=== PATIENT | female | born 1965 | race Caucasian/White ===

== ENCOUNTER 2023-09-11 09:06 | Emergency (ER) | payer OTHER, SELFPAY ==
[2023-09-11 09:13] VITALS: BP 177/95
[2023-09-11 09:29] LABS: % Basophils 1.4 % (0-2); % Eosinophils 4.1 % (0-6); % Immature Granulocytes 0.2 % (0-0.5); % Monocytes 5.8 % (1.7-9.3); % Neutrophils 56.5 % (42.2-75.2); Absolute Basophils 0.1 10^3/uL (0-0.2); Absolute Eosinophils 0.2 10^3/uL (0-0.7); Absolute Lymphocytes 1.8 10^3/uL (1.2-3.4); Absolute Monocytes 0.3 10^3/uL (0.1-0.6); Absolute Neutrophils 3.1 10^3/uL (1.4-6.5); Hematocrit 44.1 % (37.0-47.0); Hemoglobin 14.6 g/dL (12.0-16.0); Mean Corp Hgb Conc. 33.1 g/dL (33.0-37.0); Mean Corpuscular Hgb 29.4 pg (27.0-31.0); Mean Corpuscular Volume 88.7 fL (81.0-99.0); Mean Platelet Volume 10.3 fL (7.4-10.4); Nucleated Red Blood Cells % 0 %; Platelet Count 250 10^3/uL (130-400); Red Blood Cell Count 4.97 10^6/uL (4.20-5.40); Red Cell Dist. Width 12.8 % (11.5-14.5); White Blood Cell Count 5.6 10^3/uL (4.8-10.8)
[2023-09-11 09:48] LABS: ALT (SGPT) 33 U/L (0-35); AST (SGOT) 28 U/L (14-36); Albumin 4.2 g/dl (3.5-5.0); Alkaline Phosphatase 88 U/L (38-126); Blood Urea Nitrogen 20 mg/dl (7-17); Calcium 9.5 mg/dl (8.4-10.2); Carbon Dioxide 27 mmol/L (22-30); Chloride 106 mmol/L (98-107); Glucose 98 mg/dl (70-99); Potassium 4.2 mmol/L (3.5-5.1); Sodium 136 mmol/L (135-145); Total Bilirubin 0.7 mg/dl (0.2-1.3); Total Protein 6.9 g/dl (6.3-8.2); eGFR > 60.00
[2023-09-11 09:53] LABS: Troponin I < 0.012 ng/ml
[2023-09-11 11:03] VITALS: BMI 26.8
[2023-09-11 11:05] VITALS: BP 126/81
--- NOTE | 2023-09-11 11:08 | ED.GENMED ---
History of Present Illness
General
Chief Complaint: Chest Pain
Source: patient and spouse
Exam Limitations: none
Time Seen by Provider: 09/11/23 10:54
Nursing documentation reviewed up to this point in time: agreed with
Travel History
Have you had any contact with someone who has COVID-19?: No
Do you have any symptoms of coronavirus? Fever > 100 degrees, chills, cough, shortness of breath, sore throat, loss of taste or smell, muscle aches, or headache?: No
History of Present Illness
History of Present Illness:
The patient is a 58-year-old female with a past medical history of hyperlipidemia who comes in with midsternal chest tightness. Patient reports that she has had intermittent symptoms for 1 week. Patient reports that she felt the chest tightness
briefly while driving one in the car this week and also experienced the chest tightness initially after eating in a restaurant about a week ago. Patient reports that she woke up this morning with achiness around her left neck, left shoulder and
left back area. She reports that she developed the chest heaviness while walking her dog this morning, shortly before 9 AM. Patient reports that she feels much better and is nearly gone but she still feels it slightly. Patient reports that the
discomfort was associated with sweating earlier today. Patient denies shortness of breath. She denies any sharp chest pain. She denies leg pain and leg swelling. She denies a history of PE and DVT.
Past History
Past History
ED Past Medical History: HTN
ED Past Surgical History: Other
Social History
Tobacco: Non-smoker
Alcohol: None
Drug: None
Personal:
Living: with family
Employment: Other
Family History
Family History: CAD
Review of Systems
Review of Systems
Allergies reviewed?: Yes
All Other Systems: ROS reviewed and negative except as documented in HPI and ROS
Constitutional: Reports no symptoms
EENT: Reports no symptoms
Respiratory: Reports no symptoms
Cardiac: Reports chest pain
ABD/GI: Reports no symptoms
: Reports no symptoms
Musculoskeletal: Reports joint pain and back pain
Skin: Reports no symptoms
Neurological: Reports no symptoms
Endocrine: Reports no symptoms
Hematologic/Lymphatic: Reports no symptoms
Psychiatric: Reports no symptoms
Phy Exam
Physical Exam
Physical Exam:
Physical Exam
General: no apparent distress, not acutely ill. Well and comfortable appearing
Neck: supple. no meningeal signs. normal psoterior pharynx
Heart: s1/s2 regular rate and rhythm, no murmur. equal radial pulses.
Lungs: no acute respiratory distress. clear bilaterally. No pulsatile mass
Abdomen: normal bowel sounds. not tender. no CVAT
Neuro: alert and oriented. no focal neurological deficits
Skin: no rash
Psychiatric: well kept. interactive and cooperative
Extremities: no edema. no calf tenderness. negative homans. good distal pulses
Scores
Heart Score for Chest Pain Patients
STEMI patient?: No
History: Slightly or Non-Suspicious
ECG: Normal
Age: >45 - <65 years
Risk Factors: 1 or 2 Risk Factors
Troponin: </= Normal Limit
Heart Score for Chest Pain Patients: 2
Heart Score Risk: 2.5% MACE over next 6 weeks
Course
Orders/Labs/Results
Orders:
Orders
09/11/23 09:09
Electrocardiogram (*1) Urgent
Reason for Study: Chest Pain
EKG- Treatment ONCE
09/11/23 09:21
Complete Blood Count/With Diff Urgent
Comprehensive Metabolic Panel Urgent
Troponin I Urgent
09/11/23 11:38
CR Chest - 2 Views Urgent
Comment:
Reason For Exam: CP
09/11/23 12:26
Troponin I Urgent
Abnormal Lab Results
09/11/23
09:21
BUN 20 H mg/dl
(7-17)
09/11/23 09:21
09/11/23 09:21
Vital Signs
Initial and Last Documented VS:
Initial Vital Signs
Temp Pulse Resp BP Pulse Ox
98 F 66 16 177/95 98
09/11/23 09:13 09/11/23 09:13 09/11/23 09:13 09/11/23 09:13 09/11/23 09:13
Last Documented Vital Signs
Temp Pulse Resp BP Pulse Ox
98 F 71 17 135/98 96
09/11/23 09:13 09/11/23 12:30 09/11/23 12:30 09/11/23 13:20 09/11/23 13:20
MDM/Problems Addressed
Differential Diagnosis Includes:
Acute coronary syndrome, aortic dissection, PE, gastritis
MDM/Problems Addressed:
Patient presents with acute chest pain
Chronic conditions affecting care: HTN
Acute Exacerbation and/or Progression of Chronic Illness:
Patient was acutely hypertensive when getting here, but now blood pressure has come down significantly
Acute Exacerbation and/or Progression of Chronic Illness: HTN
*Radiology
Radiology exam reviewed: preliminary read by ED provider (No acute disease. Chest x-ray read by me)
*Pulse Oximetry
Patient hypoxic: no
*EKG
Interpreted by ED Provider?: Yes
Interpretation: normal
Comparison EKG: no changes
Rate: normal
Rhythm: sinus
Williams: normal axis
Interval: normal interval
QRS Pattern: normal QRS
Ischemia: no ischemia
*Milk Pickup Driver Interpretation
Rate: normal
Interpretation: normal
Rhythm: sinus
*Critical Care Note
Total Time (30-74mins, 75-104mins- exclusive of procedures): Not Applicable
Data Reviewed
Source: patient and spouse
Patient Management
Social determinants of health affecting care: Living situation and Strong social support
Escalation/DeEscalation of care consider admission/obs:
Patient remains extremely well and comfortable appearing with minimal discomfort. EKG appears nonischemic. Troponins are negative. It is doubtful she is acute coronary syndrome. In addition, she denies any shortness of breath or chest pain with
breathing. Will she is a PE.
ED Attending Note
-
Portions of this chart may have been created with voice recognition software.� Occasional wrong word or��sound alike� substitutions may have occurred due to the inherent limitations of voice recognition software.
Discharge Plan
Departure
Patient Disposition: Home (Routine Discharge)
Date of Disposition: 09/11/23
Time of Disposition: 13:09
Patient with high blood pressure during this ER visit?: Yes
Condition: Good
Covid-19: Not Applicable
Discharge Problem:
Chest pain in adult
Instructions: Chest Pain CBC Follow Up
Referrals:
Akin Yun MD [Active] - (Call in 3 days if you do not hear from the cardiology office sooner than that)
Ralph Ly MD [Family Provider] -
Interventions
Interventions:
*Risk Screen - Suicide Last Done: 09/11/23 09:13
*General Assessment Last Done: 09/11/23 09:13
*Neglect/Abuse Screening Last Done: 09/11/23 09:13
ED- Fall Risk Assessment Last Done: 09/11/23 11:03
*ED COVID-19 Vaccine History Last Done: 09/11/23 11:03
*Nursing Disposition Last Done: 09/11/23 13:27
ED- Cardiac Assessment Last Done: 09/11/23 11:03
Discharge Date and Time
Discharge Date/Time: 09/11/23 13:28
[2023-09-11 12:00] VITALS: BP 117/90
[2023-09-11 12:55] LABS: Troponin I < 0.012 ng/ml
[2023-09-11 13:20] VITALS: BP 135/98
== END 2023-09-11 13:28 | disposition home or self-care (01) ==
LOC: EMR 09:06
PROVIDERS: Emergency Medicine; EMERGENCY PHYSICIAN Emergency Medicine; FAMILY PHYSICIAN Internal Medicine
DX: R07.89 Other chest pain (principal); M54.9 Dorsalgia, unspecified; Y93.K1 Activity, walking an animal; I10 Essential (primary) hypertension; E78.5 Hyperlipidemia, unspecified; Z88.5 Allergy status to narcotic agent
CPT/HCPCS: 99284; 71046; 80053; 84484; 85025; 93005